=== PATIENT | female | born 1965 ===

== ENCOUNTER → 2024-02-06 07:17 | Outpatient (REF) | payer OTHER, SELFPAY | LOC: HWRCS 07:17 | PROVIDERS: ATTENDING PHYSICIAN Internal Medicine Cardiovascular Disease; FAMILY PHYSICIAN Family Medicine | DX: I45.10 Unspecified right bundle-branch block (principal); R07.89 Other chest pain | CPT/HCPCS: 93306 ==

== ENCOUNTER → 2024-02-13 07:31 | Outpatient (REF) | payer OTHER, SELFPAY | LOC: DHCBC/DCA 07:31 | PROVIDERS: ATTENDING PHYSICIAN Internal Medicine Cardiovascular Disease; FAMILY PHYSICIAN Family Medicine | DX: I45.10 Unspecified right bundle-branch block (principal); R07.89 Other chest pain | CPT/HCPCS: 78452; 93017; A9500 ==